=== PATIENT | female | born 1980 | race Caucasian/White ===

== ENCOUNTER → 2016-11-06 | Outpatient (CLI) | payer OTHER ==
[~2016-11-06] MED LIST: COLACE 100MG C100 MG PO; IBUPROFEN600 MG PO; LISINOPRIL-HCT1 EAC1 PO; METFORMIN HCL500 MG PO; PERCOCET 10-321 EACH PO; TANZEUM30 MG/0.5 SQ
[2016-11-06 10:28] LABS: HEMOGLOBIN 12.9 gm/dl (12.3-15.3); RED BLOOD COUNT 4.35 M/UL (4.00-5.10); WHITE BLOOD COUNT 7.9 K/UL (4.5-11.0)
[2016-11-06 10:44] LABS: BUN/CREATININE RATIO 11 (0-10)
== END ==
LOC: OPSV2 09:31
PROVIDERS: Obstetrics & Gynecology
DX: Z01.812 Encounter for preprocedural laboratory examination (principal); N93.9 Abnormal uterine and vaginal bleeding, unspecified
CPT/HCPCS: 36415; 80048; 81001; 85025

== ENCOUNTER 2016-11-13 06:19 | Inpatient (IN) | payer OTHER ==
[~2016-11-13] VITALS: Ht 162.6 cm; Wt 95.7 kg
[~2016-11-13 06:19] MED LIST changes: -COLACE 100MG C100 MG PO; -IBUPROFEN600 MG PO; -PERCOCET 10-321 EACH PO
[2016-11-14 06:06] LABS: HEMOGLOBIN 11.7 gm/dl (12.3-15.3)
[2016-11-15 09:30] LABS: HEMOGLOBIN 11.7 gm/dl (12.3-15.3); RED BLOOD COUNT 3.97 M/UL (4.00-5.10)
[2016-11-15] MEDS ORDERED: IBUPROFEN600 MG PO (14:49)
[2016-11-15] MEDS ORDERED: COLACE 100MG C100 MG PO (14:49)
[2016-11-15] MEDS ORDERED: PERCOCET 10-321 EACH PO (14:49)
== END 2016-11-15 15:17 | disposition home or self-care (01) | DRG 743 ==
LOC: ZOBSOF 06:19 → MED SURG 4 12:25
PROVIDERS: Obstetrics & Gynecology; ADMIT Obstetrics & Gynecology
PROC: 0UTC0ZZ Resection of Cervix, Open Approach (ICD-10-PCS; 2016-11-13)
PROC: 0UT70ZZ Resection of Bilateral Fallopian Tubes, Open Approach (ICD-10-PCS; 2016-11-13)
PROC: 0UT20ZZ Resection of Bilateral Ovaries, Open Approach (ICD-10-PCS; 2016-11-13)
PROC: 0UT90ZZ Resection of Uterus, Open Approach (ICD-10-PCS; principal; 2016-11-13 08:00)
DX: N93.9 Abnormal uterine and vaginal bleeding, unspecified (principal); F17.210 Nicotine dependence, cigarettes, uncomplicated; E66.9 Obesity, unspecified; Z68.37 Body mass index [BMI] 37.0-37.9, adult
CPT/HCPCS: 36415; 82962; 85014; 85018; 85025; J0690; J1100; J1885; J2250; J2270; J2405; J2710; J2765; J3010; J7030; J7120

== ENCOUNTER → 2021-09-25 | Outpatient (CLI) | payer OTHER ==
[~2021-09-25] MED LIST changes: +COLACE 100MG C100 MG PO; +IBUPROFEN600 MG PO; +PERCOCET 10-321 EACH PO
== END ==
LOC: KOH-I 09:00
DX: M25.572 Pain in left ankle and joints of left foot (principal)
CPT/HCPCS: 73610; 73630

== ENCOUNTER → 2021-10-02 | Outpatient (CLI) | payer OTHER ==
[~2021-10-02] MED LIST changes: +HYDROXYZINE HCL10 MG PO; +LEXAPRO10 MG PO; +TRAZODONE HCL50 MG PO
[2021-10-02 10:27] LABS: HEMOGLOBIN 13.8 gm/dl (12.3-15.3); RED BLOOD COUNT 4.43 M/UL (4.00-5.10); WHITE BLOOD COUNT 8.3 K/UL (4.5-11.0)
[2021-10-02 11:00] LABS: BUN/CREATININE RATIO 18 (0-10)
== END ==
LOC: OPSV2 09:42
PROVIDERS: Podiatrist Foot & Ankle Surgery
DX: Z01.818 Encounter for other preprocedural examination (principal); Z20.822 Contact with and (suspected) exposure to COVID-19
CPT/HCPCS: 36415; 80048; 85027; 93005

== ENCOUNTER → 2021-10-04 | Day surgery (SDC) | payer OTHER ==
[~2021-10-04] VITALS: Ht 160 cm; Wt 116.6 kg
== END | disposition home or self-care (01) ==
LOC: OR 06:48
DX: M76.822 Posterior tibial tendinitis, left leg (principal); M65.9 Synovitis and tenosynovitis, unspecified; M24.272 Disorder of ligament, left ankle; M21.962 Unspecified acquired deformity of left lower leg; I10 Essential (primary) hypertension; F41.9 Anxiety disorder, unspecified; F32.A Depression, unspecified; E66.01 Morbid (severe) obesity due to excess calories; Z68.41 Body mass index [BMI] 40.0-44.9, adult; Z79.899 Other long term (current) drug therapy; Z20.822 Contact with and (suspected) exposure to COVID-19
CPT/HCPCS: 0335T; 27680; 27695; 29891; 73610; 73630; 76000; C1713; J0171; J0690; J1100; J1170; J1885; J2001; J2250; J2370; J2405; J2704; J2795; J3010; J3370; J7120

== ENCOUNTER → 2021-11-13 | Outpatient (CLI) | payer OTHER | LOC: KOH-I 10:00 | DX: M79.662 Pain in left lower leg (principal) | CPT/HCPCS: 93971 ==